=== PATIENT | female | born 1975 | race Caucasian/White ===

== ENCOUNTER 2018-10-31 23:37 | Inpatient (IN) ==
[2018-11-01] MEDS ORDERED: HEPARIN IV ONE (01:04)
[2018-11-01] MEDS ORDERED: HEPARIN 25,000 UNITS/D5W 25,000 UNIT/250 ML IV.SOLN IV SCH (01:15)
[2018-11-01 01:25] LABS: URINE SOURCE CLEAN CATCH
[2018-11-01 01:27] LABS: BASO# 0.04 X1000 (0.0-0.2); BASO% 0.2 % (0.0-0.8); EOS% 1.2 % (0.0-10.0); HEMATOCRIT 41.6 % (37.0-47.0); HEMOGLOBIN 13.6 g/dL (12.0-16.0); IMM GRAN# 0.04 X1000 (0.0-0.04); IMM GRAN% 0.2 % (0.0-0.5); LYMPH% 27.5 % (20.5-51.1); MCH 32.1 PG (27-31); MCHC 32.7 g/dL (33-37); MCV 98.1 FL (81-99); MONO# 0.76 X1000 (0.11-0.59); MONO% 4.6 % (1.7-9.3); MPV 11.9 FL (7.4-10.4); NEUT# 10.84 X1000 (1.4-6.5); NEUT% 66.3 % (42.2-75.2); PLT 291 X1000 (130-400); RBC 4.24 XMIL (4.2-5.4); RDW 14.3 % (11.5-14.5); WBC 16.38 X1000 (4.8-10.8)
[2018-11-01 01:31] LABS: BILIRUBIN URINE NEGATIVE (NEGATIVE); BLOOD URINE NEGATIVE (NEGATIVE); COLOR YELLOW; GLUCOSE URINE NEGATIVE (NEGATIVE); KETONE URINE NEGATIVE (NEGATIVE); LEUKOCYTES URINE NEGATIVE (NEGATIVE); NITRITE URINE NEGATIVE (NEGATIVE); PROTEIN URINE NEGATIVE (NEGATIVE); SP GRAVITY URINE 1.021; TURBIDITY URINE CLEAR (CLEAR); UROBILINOGEN URINE NORMAL (NORMAL)
[2018-11-01 01:32] LABS: UR EPITHELIAL CELLS <10 /HPF (<10); URINE BACTERIA NEGATIVE /HPF; URINE RBC <10 /HPF (<10); URINE WBC <10 /HPF (<10)
[2018-11-01 02:24] LABS: AGAP 13; ALB/GLOB RATIO 1.4; ALBUMIN 4.5 g/dL (3.5-5.0); ALKALINE PHOSPHATASE 94 U/L (32-104); BUN 16 mg/dL (8-22); CALCIUM 8.2 mg/dL (8.8-10.2); CHLORIDE 101 mmol/L (98-107); COSMO 282; CREATININE 0.8 mg/dL (0.5-0.9); ESTIMATED GFR > 60; GLUCOSE 89 mg/dL (70-104); GOT 26 U/L (10-30); GPT 17 U/L (10-36); POTASSIUM 3.7 mmol/L (3.5-5.1); SODIUM 141 mmol/L (136-145); TCO2 27 mmol/L (25-35); TOTAL BILIRUBIN < 0.15 mg/dL (0.20-1.00); TOTAL PROTEIN 7.8 g/dL (6.3-8.3)
[2018-11-01] MEDS ORDERED: ZOFRAN IV PRN (03:07)
[2018-11-01] MEDS ORDERED: LOVENOX SUBQ SCH (03:15)
[2018-11-01] MEDS ORDERED: NS NEB INH SCH (03:15)
[2018-11-01] MEDS ORDERED: XOPENEX NEB INH PRN (03:15)
[2018-11-01] MEDS ORDERED: MORPHINE IV PRN ×2 (03:18→10:08)
--- NOTE | 2018-11-01 03:59 | PROVIDER DOCUMENTATION ---
This chart was entered by Ervin Salazar Scribe, acting as scribe for Ildefonso Aguilera MD. HPI-Chest Pain - General Chief Complaint: Chest Pain Stated Complaint: CHEST PAIN, SOB Time Seen by Provider: 11/01/18 00:43 Source: patient Allergies/Adverse Reactions: Patient Allergies Allergy/AdvReac Type Severity Reaction Status Date / Time moxifloxacin HCl * Allergy Severe ANAPHYLAXIS Verified 10/03/18 19:01 [From Avelox] Home Medications: Home Medication List Medication Instructions Recorded Confirmed Last Taken Type Albuterol Sulfate [Proventil Hfa] 2 puff INH PRN PRN 07/02/14 10/03/18 05/23/18 History Hydrocodone/APAP 10 mg/325 mg 1 each PO TID PRN PRN 06/15/15 10/03/18 10/03/18 History [[place]-10] Amlodipine Besylate [Norvasc] 10 mg PO DAILY 03/22/18 10/03/18 10/03/18 History Tizanidine HCl 4 mg PO BID PRN 05/23/18 10/03/18 10/03/18 History Losartan/Hydrochlorothiazide 1 ea PO DAILY #30 tab 10/03/18 Unknown Rx [Losartan-Hctz 50-12.5 mg Tab] - History of Present Illness-CP Nature of Presenting Problem: Pt is a 43 y/o F reports to the ED with chest pain that began this evening and lasted about 20 minutes. She reports taking 325 aspirin and says the pain went away. The pain returned later. She reports following up with a territory service representative last week after her first episode of chest pain and syncope. She reports she is scheduled for an echo and stress test in 2 weeks on November 16. She expresses sweating and the pain of 10 out of 10. Location: reports: substernal Chest Pain Radiation: reports: no radiation Quality of Pain: reports: aching Severity in ED: severe Onset/Duration: 1-3 hours ago Timing: still present Context/Activities at Onset: reports: none Modifying Factors: improves with: analgesics Associated Symptoms: reports: diaphoresis. denies: back pain, dizziness, fever/ chills, nausea, shortness of breath, vomiting Nitro Today/Relief: no nitro taken today Aspirin Treatment Today: 325 mg x 1 Prior Chest Pain/Cardiac Workup: denies: no prior chest pain (one time before 2 weeks ago.) Similar Symptoms Previously?: Yes Recently Seen Here or By Another Healthcare Provider: Yes Review of Systems - Adult - REVIEW OF SYSTEMS - ADULT Constitutional: denies: chills, fever Cardiovascular: reports: chest pain. denies: edema, palpitations Respiratory: denies: cough, shortness of breath, wheezing Gastrointestinal: denies: abdominal pain, nausea, vomiting Genitourinary: denies: dysuria, discharge Musculoskeletal: denies: back pain, neck pain Past History - Adult - PAST MEDICAL HISTORY-ADULT Review of Records: reports: Old Records Reviewed, Nursing Assessment Review, Medications Reviewed Major Childhood Illnesses: reports: denies history Cardiovascular: reports: HTN Respiratory: reports: COPD Gastrointestinal: reports: denies history Obstetrical/Gynecological: reports: denies history Genitourinary: reports: denies history Musculoskeletal: reports: denies history Neurological: reports: denies history Psychiatric: reports: anxiety Endocrine/Immune: reports: denies history Other Conditions: reports: other cancer (skin) - PRIOR SURGERIES/PROCEDURES Surgical/Procedure History: reports: BTL - IMMUNIZATION STATUS Childhood Immunizations: See Nurse Assessment Flu Vaccine: See Nurse Assessment - FAMILY HISTORY Family History: reviewed, not pertinent - SOCIAL HISTORY Smoking: cigarettes, greater than 1 pack/day Living Situation: family Physical Exam-General - PHYSICAL EXAM-ADULT Initial Vital Signs Reviewed: Yes - CONSTITUTIONAL General Appearance: appears well, alert, no apparent distress - EYES Eyes: PERRL/EOMI, pink conjunctivae - HEAD, EARS, NOSE, MOUTH & THROAT HENMT: moist mucous membranes, normal ENT inspection, pharynx normal - NECK Neck: non-tender, full range of motion, supple, normal inspection - RESPIRATORY Respiratory: lungs clear, normal breath sounds - CARDIOVASCULAR Cardiovascular: normal peripheral pulses, regular rate, rhythm - MUSCULOSKELETAL Back Exam: normal inspection, no CVA tenderness, no vertebral tenderness Extremity: normal range of motion, non-tender, normal gait, normal inspection, no pedal edema - SKIN Integumentary: normal color, normal turgor, warm/dry - NEUROLOGIC Neurologic: grossly normal, no motor/sensory deficits - PSYCHIATRIC Psych/Mental Status: normal mood/affect, normal thought content, normal thought process, oriented x 3 - HEART Score HEART Score: History: Highly Suspicious HEART Score: ECG: Normal HEART Score: Age: < or = 45 Years HEART Score: Risk Factors for Atherosclerotic Disease: > or = 3 Risk Factors or History of Atherosclerotic Disease Progress - PLAN OF CARE/RESULTS Progress/Plan/Lab Results: Vital Signs - 8 hr 10/31/18 23:48 11/01/18 01:12 Temperature 98.1 F Pulse Rate 84 76 Respiratory Rate 18 18 Blood Pressure 147/87 160/78 O2 Sat by Pulse Oximetry 98 100 Laboratory Results - last 24 hr 11/01/18 11/01/18 11/01/18 01:09 01:09 01:09 WBC 16.38 H RBC 4.24 Hgb 13.6 Hct 41.6 MCV 98.1 MCH 32.1 H MCHC 32.7 L RDW Std Deviation 14.3 Plt Count 291 MPV 11.9 H Immature Gran % (Auto) 0.2 Neut % (Auto) 66.3 Lymph % (Auto) 27.5 Ogle % (Auto) 4.6 Eos % (Auto) 1.2 Baso % (Auto) 0.2 Immature Gran # (Auto) 0.04 Neut # (Auto) 10.84 H Lymph # (Auto) 4.50 H Ogle # (Auto) 0.76 H Eos # (Auto) 0.20 Baso # (Auto) 0.04 Sodium 141 Potassium 3.7 Chloride 101 Carbon Dioxide 27 Anion Gap 13 BUN 16 Creatinine 0.8 Estimated GFR/1.73 m2 > 60 BUN/Creatinine Ratio 20 Glucose 89 Calculated Osmolality 282 Calcium 8.2 L Total Bilirubin < 0.15 L AST 26 ALT 17 Alkaline Phosphatase 94 Troponin T < 0.010 Total Protein 7.8 Albumin 4.5 Globulin 3.3 Albumin/Globulin Ratio 1.4 Lipase Urine Source Urine Color Urine Turbidity Urine pH Ur Specific [place] Urine Protein Ur Glucose (Stick) Ur Ketones (Stick) Urine Blood Urine Nitrite Urine Bilirubin Urobilinogen Dipstick Urine Leukocytes Urine WBC (Auto) Urine RBC (Auto) U Epithel Cells (Auto) Urine Bacteria (Auto) 11/01/18 11/01/18 01:09 01:09 WBC RBC Hgb Hct MCV MCH MCHC RDW Std Deviation Plt Count MPV Immature Gran % (Auto) Neut % (Auto) Lymph % (Auto) Ogle % (Auto) Eos % (Auto) Baso % (Auto) Immature Gran # (Auto) Neut # (Auto) Lymph # (Auto) Ogle # (Auto) Eos # (Auto) Baso # (Auto) Sodium Potassium Chloride Carbon Dioxide Anion Gap BUN Creatinine Estimated GFR/1.73 m2 BUN/Creatinine Ratio Glucose Calculated Osmolality Calcium Total Bilirubin AST ALT Alkaline Phosphatase Troponin T Total Protein Albumin Globulin Albumin/Globulin Ratio Lipase 31 Urine Source CLEAN CATCH Urine Color YELLOW Urine Turbidity CLEAR Urine pH 6.0 Ur Specific [place] 1.021 Urine Protein NEGATIVE Ur Glucose (Stick) NEGATIVE Ur Ketones (Stick) NEGATIVE Urine Blood NEGATIVE Urine Nitrite NEGATIVE Urine Bilirubin NEGATIVE Urobilinogen Dipstick NORMAL Urine Leukocytes NEGATIVE Urine WBC (Auto) <10 Urine RBC (Auto) <10 U Epithel Cells (Auto) <10 Urine Bacteria (Auto) NEGATIVE Orders Category Date [facility] Routine AdmDCTranf 11/01/18 03:07 Active Activity - Up with Assistance ORDERED Care 11/01/18 03:07 Active If abnormal EKG, order: NOW Care 10/31/18 23:43 Active Intake and Output-Strict ORDERED Care 11/01/18 03:07 Active Nursing- MD Consult Request ROUTINE Care 11/01/18 03:09 Active Vital Signs Order Q 8-HR ASSESS Care 11/01/18 03:07 Active Z-Document. for Tele Applied ORDERED Care 11/01/18 03:07 Active Physician/Provider Consults Routine Cons 11/01/18 03:07 Ordered NPO Diet 11/01/18 03:08 Active CHEST-2 VIEWS [RAD] Stat Exams 10/31/18 23:43 Taken CTA [CT ANGIOGRM PULMONARY ARTERIES] [CT] Stat Exams 11/01/18 03:04 Taken CBC WITH DIFF [HEME] Routine Lab 11/02/18 06:00 Ordered CBC WITH ELECTRONIC DIFF [HEME] Stat Lab 11/01/18 01:09 Completed COMPREHENSIVE METABOLIC PANEL [CHEM] Routine Lab 11/02/18 06:00 Ordered COMPREHENSIVE METABOLIC PANEL [CHEM] Stat Lab 11/01/18 01:09 Completed CRP HIGH SENSITIVITY Stat Lab 11/01/18 01:09 Received LIPASE [CHEM] Routine Lab 11/01/18 01:09 Completed LIPID PROFILE W/CALC LDL [LIPIDS] Stat Lab 11/01/18 03:14 Uncollected PROTIME WITH INR [COAG] Routine Lab 11/02/18 06:00 Ordered TROPONIN T Stat Lab 11/01/18 01:09 Completed TROPONIN T Stat Lab 11/01/18 03:20 Uncollected TSH Routine Lab 11/02/18 06:00 Ordered UA NIMS W/REFLEX CULT [URINALYSIS] Stat Lab 11/01/18 01:09 Completed 0.9% Sodium Chloride Inj [Ns] 1,000 ml Med 11/01/18 03:15 Active IV 100 mls/hr Aspirin Med 11/01/18 09:00 Active 81 mg PO DAILY Carvedilol [Coreg] Med 11/01/18 09:00 Ordered 6.25 mg PO Q12HR Enoxaparin [Lovenox] Med 11/01/18 03:15 Active 40 mg SUBQ Q24H Heparin Med 11/01/18 01:04 Discontinued 5,000 unit IV NOW ONE Heparin 25,000 Units/D5w Med 11/01/18 01:15 Discontinued 25,000 unit in 250 ml IV 8.981 mls/hr Levalbuterol Neb [Xopenex Neb] Med 11/01/18 03:15 Active 0.63 mg INH Q4H PRN PRN Morphine Med 11/01/18 03:18 Active 2 mg IV Q4H PRN PRN Ondansetron [Zofran] Med 11/01/18 03:07 Active 4 mg IV Q4H PRN PRN Sodium Chloride 0.9% Neb [Ns Neb] Med 11/01/18 03:15 Active 5 ml INH DIRECTED Aerosol Treatments Routine Oth 11/01/18 03:16 Completed Aerosol Treatments Stat Oth 11/01/18 03:16 Completed CP/Palp <45 No Known Cardiac Hx Stat Oth 10/31/18 23:43 Ordered Telemetry [OM.EQ] Routine Oth 11/01/18 03:07 Active EKG [EKG] Stat Ther 10/31/18 23:43 Ordered Echo Spec/Color Dop W/O Contra Routine Ther 11/01/18 07:00 Ordered Physical Therapy Eval/Treatment [OM.PT] Routine Ther 11/01/18 03:07 Active Transfer/Admit Order [TRANSFER] Routine Transfer 11/01/18 03:06 Ordered Result Diagrams: 11/01/18 01:09 11/01/18 01:09 - REASSESSMENT Reassessment #1 Time Reassessed: 02:36 Status: improving (She is pain free now and sleeping. Heart score is 6 ,, however.) - EKG 1 Time of EKG reading by physician:: 23:47 EKG Read and Signed by:: Ildefonso Aguilera EKG Interpretation (*Must complete 3 of following elements*): Abnormal ( borderline ECG) Rate: 86 Rhythm: NSR Comments: possible left atrial enlargement - XRAY 1 XRAY Study: Chest Impression: Normal (No acute) - CT/MRI 1 CT Study: Angiogram, Thorax (no PE) Departure - Departure Date of Disposition Decision: 11/01/18 Time of Disposition Decision: 02:39 DIAGNOSIS: Acute coronary syndrome Disposition: ADMITTED INPATIENT 09 Certified Medical Emergency: Emergent Condition: Stable Referrals and Follow-Ups: Harley Saenz MD [Primary Care Provider] - - Critical Care Note This patient required my direct & personal management of CC.: No Attestation - Physician/ AURELIA Attestation The physician spent face to face time with patient:: Yes Advanced Practice Provider documentation review:: Supervising physician onsite and consulted in the evaluation and care of this patient. The physician did have a face to face encounter with the patient. This chart was documented by the indicated scribe, (Ervin Salazar Scribe) and accurately reflects the services I performed and decisions made by me, Ildefonso Aguilera MD, as attested by the provider's signature.
[2018-11-01] MEDS: NS 1,000 ML IV SCH ×2 (05:16→14:07)
[2018-11-01] MEDS ORDERED: SODIUM CHLORIDE 0.9% INJ SCH (06:19)
[2018-11-01] MEDS ORDERED: PROTONIX IV SCH (06:19)
[2018-11-01 07:03] LABS: CHOLESTEROL 156 mg/dL (0-200); HDL 59 mg/dL (45-65); LDL 78 mg/dL; TRIGLYCERIDES 97 mg/dL (35-135); VLDL 19 mg/dL
--- NOTE | 2018-11-01 07:31 | Diag Imaging Result Doc PS360 ---
EXAM: CHEST-2 VIEWS HISTORY: cp TECHNIQUE: Chest two views COMPARISON: 10/03/2018 FINDINGS: The lungs are well expanded. The heart is not enlarged. The vessels are not distended. There are no infiltrates. No pleural effusions. IMPRESSION: No acute abnormality. Electronically signed by Hossein Carrera 11/01/2018 7:29 AM
[2018-11-01] MEDS ORDERED: BLISTEX MEDICATED BERRY LIP BALM TOP ONE (07:32)
--- NOTE | 2018-11-01 07:54 | Diag Imaging Result Doc PS360 ---
EXAM: CT ANGIOGRM PULMONARY ARTERIES INDICATION: chest pain. R/ PE vs other vascular causes TECHNIQUE: This exam was performed using automated exposure control, adjustment of mA or kV according to patient size, and/or use of iterative reconstruction technique. Thin section axial images and 3-D MIPS were obtained. COMPARISON: None. FINDINGS: There is no evidence of pulmonary embolus. There is no evidence of aortic dissection or aneurysm. There is no significant mediastinal or hilar lymphadenopathy. The lungs are clear. There is no pleural fluid collection and no pneumothorax. There is questionable mild bronchial wall thickening, which may indicate bronchitis. Please correlate clinically. Limited views of the upper abdomen are unremarkable. The bony structures are intact. IMPRESSION: 1.Questionable mild diffuse bronchial wall thickening, which may indicate bronchitis. Please correlate clinically. 2.No evidence of pulmonary embolism. Electronically signed by Russel Garcias 11/01/2018 7:51 AM
--- NOTE | 2018-11-01 07:58 | EKG Report ---
Test Performed on : 10/31/2018 11:47:41 PM Test Reason : cp Blood Pressure : / mmHG Vent. Rate : 086 BPM Atrial Rate : 086 BPM P-R Int : 138 ms QRS Dur : 088 ms QT Int : 372 ms P-R-T Axes : 074 053 049 degrees QTc Int : 445 ms Normal sinus rhythm. Possible Left atrial enlargement Borderline ECG When compared with ECG of 03-OCT-2018 18:20, (Unconfirmed) No significant change was found Unconfirmed Result
[2018-11-01] MEDS ORDERED: ASPIRIN PO SCH (09:00)
[2018-11-01] MEDS ORDERED: NORVASC PO SCH (09:00)
[2018-11-01] MEDS ORDERED: HYZAAR 50/12.5 MG PO SCH (09:00)
[2018-11-01] MEDS ORDERED: COREG PO SCH (09:00)
--- NOTE | 2018-11-01 09:26 | HISTORY AND PHYSICAL ---
PRIMARY CARE PROVIDER: Dr. Saenz. PRESENTING COMPLAINT: Chest pain. HISTORY OF PRESENTING COMPLAINT: Ms. Michelle is a 43-year-old female, more than 30 pack- year history of smoking and hypertension. The patient was seen in the ER on 10/03/2018 because of chest pain. She was evaluated at that time, sent home, and was given appointment to follow up with Dr. Pruett. According to Ms. Michelle, she saw Dr. Pruett 1 time, and there was an order for her to come and do a stress test and an echo on the of next month. The chest pain continued to linger around for some time. However, yesterday she was just sitting down, not doing any major work. She felt a retrosternal chest pain, scale of about 7/10, which was associated with some nauseation. She took aspirin; that got it better, but 15 minutes later she got another episode of more intense retrosternal chest pain, more so to the left side. No radiation associated with sweating. She came to the emergency department where she was evaluated, and we have been consulted to admit for chest pain to rule out coronary artery disease. PAST MEDICAL HISTORY: 1. Hypertension. 2. COPD. 3. Remote history of renal stones. CURRENT MEDICATIONS: 1. Albuterol inhaler. 2. Amlodipine 10 mg daily. 3. Hydrocodone. 4. Losartan/hydrochlorothiazide 1 tablet daily. 5. Tizanidine 4 mg b.i.d. PAST SURGICAL HISTORY: Bilateral tubal ligation. FAMILY HISTORY: Noncontributory. ALLERGIES: Avelox. SOCIAL HISTORY: The patient lives at home, is single. Works 2 jobs. Continues to smoke about a pack a day. Denies any alcohol use or recreational drug use. REVIEW OF SYSTEMS: Fourteen point review of system conducted with Ms. Michelle unremarkable, except what we have in the HPI. Specifically, Ms. Michelle denies any cough. Denies any sputum production. No palpitation. No abdominal pain. No diarrhea. No syncopal episode. PHYSICAL EXAMINATION: VITAL SIGNS: Blood pressure is currently 160/78, pulse is 76, respiration is 18, temperature is 98.1 degrees. GENERAL EXAM: Ms. Michelle is a 43-year-old female. She was in bed, no distress. HEENT: Mucosa is pink and moist. Anicteric. Acyanotic. NECK: Supple. Trachea was midline. There was no thyromegaly. Head was normocephalic and atraumatic. RESPIRATORY SYSTEM: There is good air entry bilateral. There is some distant bilateral wheezing. No rhonchi. No crackles. CARDIOVASCULAR SYSTEM: Regular rate and rhythm. There is no murmurs, no rubs, no gallops. [place] beat is at the fifth intercostal space, midclavicular line. GI: Abdomen is soft, nontender. Bowel sounds present. There was no hepatosplenomegaly. EXTREMITIES: No pedal edema. Distal pulses present. LOGISTICS SPECIALIST: Patient is awake, alert, oriented. Executive function seems to be intact. Motor is 5/5 in all extremities. Sensation is intact. Cranial nerves 2-12 have been grossly examined and they are unremarkable. LABORATORY DATA: 1. WBC is 16.38, hemoglobin is 13.6, platelet count of 291. 2. Chemistry is also reviewed and is unremarkable. DIAGNOSTIC STUDIES: 1. A chest x-ray shows no acute pathology. There is evidence of COPD. 2. EKG shows normal sinus rhythm, rate was about 86, no ST-segment abnormality. No T-wave abnormality. ASSESSMENT: Ms. Michelle is a 43-year-old female with on and off chest pain, referred to have felt the worst of it all this morning, as well as last night. She is hypertensive almost all the time, even on 3 different types of medication, and she is also a strong tobacco abuser. 1. Chest pain. The patient does have remarkable risk factors for coronary artery disease, so I think it is reasonable to admit her and do cardiac risk stratification. It is supposed to be noted that Ms. Michelle is extremely hypertensive, and with the chest pain it is reasonable also to rule out aortic dissection or any other vascular pathology. I will therefore do a computed tomography angiography of the pulmonary artery and the thoracic aorta. Trend the troponins and get an echo, as well as a stress test tomorrow. We will get Cardiology also to evaluate her. 2. Uncontrolled hypertension we restarted her medication back. I have also added carvedilol for better blood pressure control. 3. Clinical volume depletion. Will continue with gentle intravenous fluids. 4. Tobacco abuse. Patient has been counseled. 5. History of chronic obstructive pulmonary disease with mild bronchospasm. We will use levalbuterol for as-needed nebulization. I do not think Ms. Michelle is currently in acute exacerbation of her chronic obstructive pulmonary disease. The plan has been explained and discussed in detail with Ms. Michelle and she voiced understanding. cc: Terrance Davis MD
[2018-11-01] MEDS: NORCO-10 PO PRN ×2 (10:33→18:08)
[2018-11-01] MEDS ORDERED: LEXISCAN ONE (12:28)
--- NOTE | 2018-11-01 14:36 | Diag Imaging Result Document ---
PROCEDURE NAME: MYOCARDIAL PERF SCAN, STR/REST - 11/01/2018 SUMMARY: The patient was administered 10.2 mCi of technetium 99-m sestamibi after which resting cardiac images were obtained. The patient was subsequently administered Lexiscan 0.4 mg intravenously after which the heart rate went from 61 beats per minute to 96 beats per minute, the blood pressure went from 132/70 to 130/64. With Lexiscan, the patient reported moderate chest tightness which resolved spontaneously. Following the administration of Lexiscan, the patient was administered 33.8 mCi of technetium 99-m sestamibi after which gated stress cardiac images were obtained. Baseline ECG demonstrates sinus rhythm and was within normal limits. With Lexiscan, there were no diagnostic ST-segment changes. SPECT images were reconstructed in the short, horizontal, and vertical long axis. Review of these images demonstrated homogeneous uptake of radiopharmaceutical both stress and resting images. Gated images demonstrate a calculated left ejection fraction of 62% with symmetrical wall motion/thickening. CONCLUSIONS: 1. Adequate response to Lexiscan. 2. Clinically, the patient reported moderate chest tightness with Lexiscan. 3. Electrocardiographically, there were no diagnostic ST-segment changes on ECG following administration of Lexiscan. 4. Normal Lexiscan sestamibi images. cc: MD Terrance Gamboa MD
[2018-11-01 15:45] VITALS: BP 139/62
--- NOTE | 2018-11-01 18:01 | DISCHARGE SUMMARY ---
ADMISSION DATE: 11/01/2018 DISCHARGE DATE: HISTORY OF PRESENT ILLNESS: Ms. Michelle was admitted on 11/01/2018 and discharge in the evening on 11/01/2018. She presented with chest pain. A 43-year-old with more than a 30-pack history of smoking and hypertension. Seen in the emergency room on 09/25/2018 because of chest pain. Evaluated at that time, was sent home, was given an appointment to follow up with Dr. Pruett. According to Mrs. Michelle, she saw Dr. Pruett one time and then was ordered for her to come to do a stress test and an echo on the of this month. Chest pain continued to linger around some time. However, yesterday she was sitting down and not doing any major work and felt retrosternal chest pain, scale 7/10 to 10/10, associated with some nausea, and she took an aspirin and it got a little better but 15 minutes later, got another episode of more intense retrosternal chest pain, more on the left side. She presented to the hospital. PAST MEDICAL HISTORY: 1. Hypertension. 2. COPD. 3. Remote history of renal stones. MEDICATIONS: Albuterol, amlodipine, hydrocodone, losartan/hydrochlorothiazide, tizanidine 4 mg b.i.d. SURGICAL HISTORY: Bilateral tubal ligation. Admitted to the hospital. Cardiac enzymes were unremarkable. She does have remarkable risk factors for coronary artery disease so a Lexiscan was done. The Lexiscan myocardial perfusion scan had an adequate response to Lexiscan clinically. The patient reported moderate chest tightness with Lexiscan. Electrically, there were no diagnostic ST-segment changes and then normal Lexiscan sestamibi images. As she wanted to go home, discharged her home. She will follow up with Cardiology. DISCHARGE MEDICATIONS: She is on Norvasc 10 mg a day, aspirin 81 mg a day, Coreg 6.25 mg q.12 h., hydrochlorothiazide/losartan which is Hyzaar 50/12.5 one a day. She was taking [place] 10 which she can get from her primary care physician if wants her to continue. I will keep her on Protonix 40 mg a day for another 4 weeks. FOLLOW-UP: Follow up with Cardiology. Follow up with primary care. cc: Selvin Love MD
--- NOTE | 2018-11-02 09:47 | ECHO REPORT ---
ORDER DATE: 11/01/2018 MEASUREMENTS: Left ventricular end-diastolic 4.2, end-systolic diameter 3.2, septal thickness 1.0, aortic root 3.2, left atrium 4.6. SUMMARY: 1. Fair quality study. 2. Aortic valve is trileaflet and opens adequately on 2-dimensional images. Peak gradient across the aortic valve is less than 10 mmHg. Mitral, tricuspid, and pulmonic valves are without evidence of structural abnormality with mild tricuspid regurgitation. The estimated systolic PA pressure by Doppler is 35 mmHg. The aortic root is normal in size. 3. Normal left ventricular dimensions demonstrated. Estimated left ventricular ejection fraction appears to be at least 60%. No regional wall motion abnormalities are evident. The left atrium is mildly enlarged. The right atrium and right ventricle are normal in size with grossly preserved right ventricular systolic function. 4. No pericardial effusion. 5. Appearance of inferior vena cava suggests normal central venous pressure. cc: MD Terrance Gamboa MD
== END 2018-11-01 18:12 | disposition home or self-care (01) | DRG 313 ==
LOC: ED 23:37 → SUATTDRO 11-01 05:24 → EDIPHOLD 11-01 05:24 → 3N 11-01 10:39
PROVIDERS: ATTEND Emergency Medicine
CPT/HCPCS: 71020; 71046; 71275; 78452; 80053; 80061; 81001; 83690; 84484; 85025; 86141; 93005; 93017; 93306; 96365; 96366; 96372; 96375; 99285; A9270; A9500; C9113; J1644; J1650; J2785; J7030; Q9967; S0164